=== PATIENT | male | born 2005 | race American Indian/Alaskan Native ===

== ENCOUNTER → 2024-10-31 | Outpatient (CLI) | payer MEDICAID ==
[~2024-10-31] MED LIST: ALBUTEROL SULF 2.5 MG/0.5ML(0.5%) NEB SOLN ONE
== END | disposition home or self-care (01) ==
LOC: RT 10:44
PROVIDERS: ATTEND Internal Medicine Pulmonary Disease
DX: J45.901 Unspecified asthma with (acute) exacerbation (principal); R06.09 Other forms of dyspnea
CPT/HCPCS: 94060; 94727; 94729